=== PATIENT | male | born 1975 | race Caucasian/White ===

== ENCOUNTER 2018-05-22 17:55 | Emergency (ER) | payer OTHER ==
[~2018-05-22] VITALS: Ht 182.9 cm; Wt 99.8 kg
[~2018-05-22 17:55] MED LIST: COUMADIN7.5 MG PO; ROBAXIN 750 MG750 M1 PO
[2018-05-22] MEDS ORDERED: BACTROBAN CREAM30 G1 TOP (18:19)
[2018-05-22 18:24] VITALS: BP 119/74
== END 2018-05-22 18:33 | disposition home or self-care (01) ==
LOC: M.ERS 17:55
DX: R21 Rash and other nonspecific skin eruption (principal); W57.XXXA Bitten or stung by nonvenomous insect and other nonvenomous arthropods, initial encounter; Y93.89 Activity, other specified; Y92.89 Other specified places as the place of occurrence of the external cause; Y99.8 Other external cause status

== ENCOUNTER 2019-09-28 06:12 | Emergency (ER) | payer OTHER ==
[~2019-09-28] VITALS: Ht 180.3 cm; Wt 97.5 kg
[~2019-09-28 06:12] MED LIST changes: +BACTROBAN CREAM30 G1 TOP
[2019-09-28 06:35] LABS: ABSOLUTE EOSINOPHILS 0.2 thou/uL (0.0-0.7); ABSOLUTE MONOCYTES 0.4 thou/uL (0.0-1.2); ABSOLUTE NEUTROPHILS 1.2 thou/uL (1.6-8.1); BASOPHILS 0.8 %; EOSINOPHILS 5.1 %; HEMOGLOBIN 16.1 gm/dL (14.0-18.0); LYMPHOCYTES 51.6 %; MCH 33.5 pg (26.0-34.0); MCHC 35.1 g/dL (28.0-37.0); MCV 95.5 fL (80.0-100.0); MONOCYTES 10.9 %; MPV 7.8 fl. (7.2-11.1); NUCLEATED RBCS 0 /100WBC; PLATELET COUNT* 163 thou/uL (150-400); POLYS 31.6 %; RBC 4.82 mil/uL (4.50-6.00); RDW-CV 13.4 % (10.5-14.5); WBC 3.8 thou/uL (4.0-11.0)
[2019-09-28 06:41] LABS: CALCIUM 8.8 mg/dL (8.5-10.1); CREATININE 0.9 mg/dL (0.6-1.3)
[2019-09-28 06:45] LABS: INR 0.9; PROTIME 9.7 Seconds (9.20-11.50)
[2019-09-28 06:52] LABS: ALBUMIN 3.6 g/dL (3.4-5.0); TOTAL BILIRUBIN 0.2 mg/dL (<0.1-1.0); TOTAL PROTEIN 7.6 g/dL (6.4-8.2)
[2019-09-28 06:52] LABS: INFLUENZA A ANTIGEN Negative (Negative); INFLUENZA B ANTIGEN Negative (Negative)
[2019-09-28] MEDS ORDERED: LEVAQUIN 500 M500 M8 PO (08:47)
[2019-09-28] MEDS ORDERED: PROMETHAZINE-P118 M1 PO (08:47)
[2019-09-28 09:03] VITALS: BP 113/69
--- NOTE | 2019-09-28 14:09 | EKG ---
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 09/28/19 1409 D: [id number] 2 Klaus Bejarano MD, FACC /EPI
== END 2019-09-28 09:04 | disposition home or self-care (01) ==
LOC: M.ERS 06:12
PROVIDERS: Emergency Medicine
DX: J06.9 Acute upper respiratory infection, unspecified (principal); J18.9 Pneumonia, unspecified organism; Z86.718 Personal history of other venous thrombosis and embolism; Z86.711 Personal history of pulmonary embolism

== ENCOUNTER 2020-06-20 18:22 | Emergency (ER) | payer OTHER ==
[~2020-06-20] VITALS: Ht 182.9 cm; Wt 95.3 kg
[~2020-06-20 18:22] MED LIST changes: +LEVAQUIN 500 M500 M8 PO; +PROMETHAZINE-P118 M1 PO
[2020-06-20] MEDS ORDERED: JANTOVEN1 MG PO (18:33)
[2020-06-20] MEDS ORDERED: NORCO 5-325 TA1 EAC2 PO ×2 (20:01→20:02)
[2020-06-20 20:12] VITALS: BP 112/73
== END 2020-06-20 20:14 | disposition home or self-care (01) ==
LOC: M.ERS 18:22
DX: M25.512 Pain in left shoulder (principal); Z86.718 Personal history of other venous thrombosis and embolism; Z86.711 Personal history of pulmonary embolism; Z86.73 Personal history of transient ischemic attack (TIA), and cerebral infarction without residual deficits; Z79.01 Long term (current) use of anticoagulants

== ENCOUNTER 2021-04-30 16:27 | Inpatient (IN) | payer OTHER ==
[~2021-04-30] VITALS: Ht 180.3 cm; Wt 93.4 kg
[~2021-04-30 16:27] MED LIST changes: +JANTOVEN1 MG PO; +NORCO 5-325 TA1 EAC2 PO
[2021-04-30 16:40] VITALS: BP 111/74
[2021-04-30 17:18] LABS: ABSOLUTE BASOPHILS 0.1 thou/uL (0.0-0.2); ABSOLUTE EOSINOPHILS 0.4 thou/uL (0.0-0.7); ABSOLUTE LYMPHOCYTES 2.9 thou/uL (0.8-5.3); ABSOLUTE MONOCYTES 0.7 thou/uL (0.0-1.2); ABSOLUTE NEUTROPHILS 4.4 thou/uL (1.6-8.1); BASOPHILS 0.6 %; EOSINOPHILS 4.4 %; HEMATOCRIT 39.4 % (42.0-52.0); HEMOGLOBIN 13.7 gm/dL (14.0-18.0); LYMPHOCYTES 34.4 %; MCH 33.9 pg (26.0-34.0); MCHC 34.8 g/dL (28.0-37.0); MCV 97.5 fL (80.0-100.0); MONOCYTES 7.8 %; NUCLEATED RBCS 0 /100WBC; PLATELET COUNT* 155 thou/uL (150-400); POLYS 52.8 %; RBC 4.04 mil/uL (4.50-6.00); RDW-CV 13.1 % (10.5-14.5); WBC 8.3 thou/uL (4.0-11.0)
[2021-04-30 17:58] LABS: CALCIUM 8.5 mg/dL (8.5-10.1); POTASSIUM 4.4 mmol/L (3.5-5.1)
[2021-04-30 18:02] LABS: ALBUMIN 3.5 g/dL (3.4-5.0); PROTIME 10.3 Seconds (9.20-11.50); TOTAL BILIRUBIN 0.1 mg/dL (<0.1-1.0); TOTAL PROTEIN 6.8 g/dL (6.4-8.2)
[2021-05-01] VITALS (10 sets, daily range): BP systolic 94–115; BP diastolic 50–73
--- NOTE | 2021-05-01 09:40 | NUR ---
PT IS 45 Y/O WHITE MALE BOARDING IN PACU BAY "G" FOR BILATERAL PE'S UNTIL TELE ROOM BECOMES AVAILABLE. PT IS AXOX4. DENIES PAIN. PT STATES HE HAD RIGHT CALF PAIN OVER THE LAST COUPLE DAYS. LOWER EXTREMITY DOPPLER NEGATIVE, BUT CTA CHEST SHOWS BILATERAL PE'S. PT RCV'D LOVENOX SQ IN ER THIS AM. 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 ROOM AIR. INSTRUCTED TO NOTIFY NURSING W/ANY CHEST PAIN/SOA. PT VERBALIZED UNDERSTANDING. 20 G NOTED TO LEFT AC. CALL LIGHT WITHIN REACH.
--- NOTE | 2021-05-01 11:00 | NUR ---
Met with patient at bedside and introduced role of CM. Patient admitted with bilat PE's. Patient currently lives at home in a split level house with his and mother in law. Patient was working, driving and independent with [employer] prior to admission. Patient has no PCP (resources to be provided) and no health insurance. Patient to be screened for [facility]. No hx of DME, dialysis, infusion therpay, BHS, infusion therapy, HH or SNF/rehab. Per patient, he stated that he had not taken his coumadin in about 1 year or >. CM Dir asked if financial assistance was needed in order for him to obtain medication and patient verbalized that he can afford the medication but he just "didn't have the time to get it". Patient stated that "alot of things just kept coming up and he didn't have the time to get it". Advised patient that he will need to get linked in with a PCP to obtain continuous refills. Also advised patient that pharmacies have mail order prescriptions as well if going to pick the meds up is too much of a hassle. Patient verbalized understanding. CM to continue to follow
--- NOTE | 2021-05-01 11:53 | NUR ---
PT RESTING W/EYES CLOSED IN PACU BAY "G". CALL LIGHT WITHIN REACH. WILL CONTINUE TO MONITOR PT CLOSELY.
--- NOTE | 2021-05-01 13:50 | NUR ---
ADMISSION HX AND ASSESSMENT COMPLETED ON PT. PT CONTINUES TO DENY PAIN. REMAINS ON ROOM AIR. INSTRUCTED TO NOTIFY NURSING W/ANY CHEST PAIN/SOA. NOW AT BEDSIDE. CALL LIGHT WITHIN REACH.
--- NOTE | 2021-05-01 14:07 | EKG ---
[place] [address] ELECTROCARDIOGRAM REPORT Name: SADAROCHELLE MILLERNE Rupal Room: [place] [address] ADM IN 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 Consultant: : 1975 Requested By: Rhonda Weems Order Number: [id number] MD: Deion Franklin Measurements Intervals [place] Rate: 56 P: 39 NE: 169 QRS: 44 QRSD: 101 T: 40 QT: 419 QTc: 405 Interpretive Statements Sinus rhythm Compared to ECG 09/28/2019 06:33:08 No significant changes Electronically Signed On 05-01-2021 14:07:43 CDT by Deion Franklin [email or web address] <ELECTRONICALLY SIGNED> By: Deion Franklin MD, [facility] 05/01/21 1407 170 170 Deion Franklin MD, [facility] /EPI
--- NOTE | 2021-05-01 14:24 | NUR ---
DR. WALTERS HERE ON THE UNIT. NEW ORDERS RCMisty'Laly.
--- NOTE | 2021-05-01 16:08 | NUR ---
Pt discharging to home today, CM provided Pt with a good rx card, Pt works and able to afford meds. Pt will need his INR checked, SOTERO scheduled a PCP appt at the [facility] with Dr Miguel for 05/03 at noon. SOTERO explained the different financial options. SOTERO faxed clinicals to [facility] [phone]. to right scripts. Plan echo prior to dc.
[2021-05-01] MEDS ORDERED: ENOXAPARIN100 MG/11 SUBQ (16:47)
[2021-05-01] MEDS ORDERED: JANTOVEN5 MG PO (16:48)
--- NOTE | 2021-05-01 16:55 | 2DMMODE ---
[place] [address] 2 D/M-MODE ECHOCARDIOGRAM Name: DAY ARTIS Room: [place] [address] ADM [place] .[place].#: [id number] Admission: 04/30/21 Attend Phys: Ibrahima Valentine Discharge: Date of : 71 Date of Service: 05/01/21 1655 Report #: [id number] THIS REPORT FOR: cc: FAM - No family physician/PCP FAM - No family physician/PCP Cayetano Gil MD [facility] ~ APPROVED REPORT Study performed: 05/01/2021 16:03:28 EXAM: Comprehensive 2D, Doppler, and color-flow Echocardiogram Patient Location: In-Patient Status: routine BSA: 2.13 HR: 48 bpm BP: 115/50 mmHg Rhythm: NSR Other Information Study Quality: Good Indications Pulmonary Embolism 2D Dimensions IVSd: 8.88 (7-11mm) LVOT Diam: 19.06 (18-24mm) LVDd: 53.48 mm PWd: 9.22 (7-11mm) Ascending Ao: 32.14 (22-36mm) LVDs: 29.43 (25-40mm) Aortic Root: 28.09 mm Volumes Left Atrial Volume (Systole) LA ESV Index: 25.70 mL/m2 Aortic Valve AoV Peak Luis.: 1.43 m/s AO Peak Gr.: 8.18 mmHg LVOT Max P.69 mmHg AO Mean Gr.: 4.61 mmHg LVOT Mean P.55 mmHg LVOT Max V: 1.47 m/s AO V2 VTI: 33.61 cm LVOT Mean V: 0.85 m/s TEMO (VTI): 2.55 cm2 LVOT V1 VTI: 30.00 [place] [address] 2 D/M-MODE ECHOCARDIOGRAM Name: DAY ARTIS Room: [address] [place] .#: [id number] Admission: 04/30/21 Attend Phys: Ibrahima Valentine Discharge: Date of : 71 Date of Service: 05/01/21 1655 Report #: [id number] Mitral Valve E/A Ratio: 1.48 MV Decel. Time: 223.77 ms MV E Max Luis.: 0.77 m/s MV PHT: 64.89 ms MVA (PHT): 3.39 cm2 TDI E/Lateral E': 4.28 E/Medial E': 5.13 Medial E' Luis.: 0.15 m/s Lateral E' Luis.: 0.18 m/s Pulmonary Valve PV Peak Luis.: 1.05 m/s PV Peak Gr.: 4.37 mmHg Tricuspid Valve RAP Estimate: 5.00 mmHg TR Peak Gr.: 19.79 mmHg RVSP: 24.00 mmHg PA Pressure: 24.00 mmHg Left Ventricle The left ventricle is normal size. There is normal LV segmental wall motion. There is normal left ventricular wall thickness. Left ventricular systolic function is normal. LVEF is 55-60%. The left ventricular diastolic function is normal. Right Ventricle The right ventricle is normal size. The right ventricular systolic function is normal. Atria The left atrium size is normal. The right atrium size is normal. Aortic Valve The aortic valve is normal in structure. No aortic regurgitation is present. There is no aortic valvular stenosis. Mitral Valve The mitral valve is normal in structure. There is no mitral valve regurgitation noted. No evidence of mitral valve stenosis. Tricuspid Valve The tricuspid valve is normal in structure. Trace tricuspid regurgitation. [place] [address] 2 D/M-MODE ECHOCARDIOGRAM Name: DAY ARTIS Room: [address] IN [facility]#: [id number] Admission: 04/30/21 Attend Phys: Ibrahima Valentine Discharge: Date of : 71 Date of Service: 05/01/21 1655 Report #: [id number] Pulmonic Valve The pulmonary valve is normal in structure. There is no pulmonic valvular regurgitation. Great Vessels The aortic root is normal in size. IVC is normal in size and collapses >50% with inspiration. Pericardium There is no pericardial effusion. <Conclusion> The left ventricle is normal size. There is normal left ventricular wall thickness. Left ventricular systolic function is normal. LVEF is 55-60%. The left ventricular diastolic function is normal. Trace tricuspid regurgitation. No pulmonary hypertension. IVC is normal in size and collapses >50% with inspiration. <ELECTRONICALLY SIGNED> By: Cayetano Gil MD, [facility] 05/01/211654 54 54 Cayetano Gil MD, FACC /INF
--- NOTE | 2021-05-01 17:55 | NUR ---
PT AND SPOUSE GIVEN D/C INSTRUCTIONS. BOTH VERBALIZED UNDERSTANDING. IMPORTANCE OF KEEPING HIS FAMILY CARE APPT THIS WEEK W/DR. [place] STRESSED TO PT AND HIS SPOUSE. PT INSTRUCTED TO TAKE HIS MEDICATIONS PRESCRIBED. PT TAKEN OUT TO FAMILY CAR VIA W/CHAIR FOR D/CHARGE HOME TO SELF CARE. DISCHARGED FROM THE PREOP AREA BAY "G".
== END 2021-05-01 17:55 | disposition home or self-care (01) | DRG 176 ==
LOC: M.ERS 16:27 → M.TBA-ER 20:44
PROVIDERS: Nurse Practitioner Family; ADMIT Internal Medicine; ATTEND Internal Medicine
DX: I26.99 Other pulmonary embolism without acute cor pulmonale (principal); D68.61 Antiphospholipid syndrome; F17.210 Nicotine dependence, cigarettes, uncomplicated; Z20.822 Contact with and (suspected) exposure to COVID-19; Z86.718 Personal history of other venous thrombosis and embolism; Z86.711 Personal history of pulmonary embolism; Z86.73 Personal history of transient ischemic attack (TIA), and cerebral infarction without residual deficits; Z72.89 Other problems related to lifestyle